=== PATIENT | male | born 1970 | race Caucasian/White ===

== ENCOUNTER 2016-08-09 14:54 | Inpatient (IN) | payer OTHER ==
[~2016-08-09] VITALS: Ht 180.3 cm; Wt 165.4 kg
[2016-08-09] MEDS ORDERED: CEFTAROLINE FOSAMIL 600 MG in D5W MINI-BAG PLUS 50 ML IV ONE (15:45)
[2016-08-09 16:12] LABS: BASO % 0.4 % (0.0-1.0); EOS # 0.1 K/mm3 (0.0-0.50); EOS % 1.6 % (0.0-3.0); LARGE UNSTAINED CELL # 0.1 K/mm3 (0.0-0.4); LARGE UNSTAINED CELL % 1.1 % (0.0-4.0); LYMPH # 1.4 K/mm3 (1.5-4.5); LYMPH % 15.2 % (24.0-44.0); MEAN CORPUSCULAR HEMOGLOBIN 29.1 pg (27.0-33.0); MEAN CORPUSCULAR HGB CONC 34.1 g/dl (32.0-36.5); MEAN CORPUSCULAR VOLUME 85.5 fl (80.0-96.0); MONO # 0.5 K/mm3 (0.0-0.8); MONO % 5.7 % (0.0-5.0); NEUTROPHILS # 6.4 K/mm3 (1.8-7.7); NEUTROPHILS % 76.1 % (36.0-66.0); PLATELET COUNT, AUTOMATED 234 k/mm3 (150-450); RED CELL DISTRIBUTION WIDTH 12.9 % (11.5-14.5); WHITE BLOOD COUNT 8.4 K/mm3 (4.0-10.0)
[2016-08-09 16:33] LABS: ANION GAP 5 MEQ/L (8-16); BLOOD UREA NITROGEN 16 MG/DL (7-18); CALCIUM LEVEL 8.9 MG/DL (8.5-10.1); CARBON DIOXIDE LEVEL 26 MEQ/L (21-32); CHLORIDE LEVEL 107 MEQ/L (98-107); GLOMERULAR FILTRATION RATE > 60.0 (>60); GLUCOSE, FASTING 109 MG/DL (70-105); POTASSIUM SERUM 3.6 MEQ/L (3.5-5.1); SODIUM LEVEL 138 MEQ/L (136-145)
[2016-08-09 20:00] VITALS: BP 136/77
[2016-08-09] MEDS ORDERED: ACETAMINOPHEN TAB 650MG DOSE (2X325MG) PO PRN (22:00)
--- NOTE | 2016-08-09 22:13 | PHACANCOPD ---
PHARMACY VANCOMYCIN DOSING Pt Demographics Demographics Patient Age:46 , Weight:165.400 , Gender: male Adjusted Body Weight Date: 08/09/16, Adjusted Body Weight: [111.2] Kg Events Past 24 Hours Events Past 24 Hours: NO: Dialysis, Diuretic Therapy, Change in CrCl, Fever, Elevation in WBC, Pending Diagnostics, Pending Procedures, Other Vancomycin Vancomycin Target Ranges: 15-20 mcg/ml Vancomycin Load Y/N: Yes Load Dose Date Time Vancomycin Load Dose: 2000MG Date: 08-09 Time: 2200 Vancomycin Dose Date: 08/09/16. Current Vancomycin Dose: [1000MG Q6H] Intermittent Dosing?: No Labs Labs Item Value Date Time White Blood Count 8.4 K/mm3 08/09/16 1558 Blood Urea Nitrogen 16 MG/DL 08/09/16 1558 Vital Signs Label Value Date Time Patient Temperature 99.1 degrees F 08/09/161999 Temperature Source Temporal 08/09/161999 Micro Microbiology 08/09/16 Blood Culture, Received Pending 08/09/16 Blood Culture, Received Pending Creatinine Clearance Date:08/09/16. Creatinine Clearance: [120]. Pending Labs Trough 07-05 @0700 Assessment and Plan Maintaining Current Dose?: Yes Reason for dose change: No Dose Change Pharmacist Note Pharmacist Note Date: 08/09/16. Pharmacist note:Dosed at 1000mg q6h with a trough ordered for 07- 05 @0700. Will continue to monitor and make adjustments as needed. RADHA AN PHARMACY Aug 09, 2016 22:13
--- NOTE | 2016-08-09 22:30 | HPE ---
DATE OF ADMISSION: 08/09/2016 PRIMARY CARE PROVIDER: None. CHIEF COMPLAINT: Neck pain. HISTORY OF PRESENT ILLNESS: He is a 46-year-old male with no significant past medical history who presented with 4 to 5 day history of neck pain. The pain started with mild swelling the first two days and then subsided. By the fourth day it returned again with a vengeance, much bigger and tender to palpation and slightly warm. The patient denies any trauma the neck. He also denies fever, chills, sick contacts, recent travel. REVIEW OF SYSTEMS: Ten point system assessed and negative except for what is noted in history of present illness. PAST MEDICAL HISTORY: Morbid obesity. SURGICAL HISTORY: He denies. FAMILY HISTORY: Grandparents have some kind of cancer, he does not recall. SOCIAL HISTORY: He has never smoked. He drinks alcohol on the weekend. Denies recreational drug use. Is . Has no children. ALLERGIES TO MEDICATIONS: None. LIST OF MEDICATIONS: None. PHYSICAL EXAMINATION: VITAL SIGNS: Blood pressure 136/77, pulse 83, respiratory rate 20, oxygen saturation 99% on room air, temperature 99.1 degrees Fahrenheit. GENERAL: He is alert, oriented to person, place, time and circumstances. No distress. Pleasant. He appears happy. HEENT: Pupils are equal, round and reactive to light. Extraocular muscles intact. Anicteric sclerae. Mucous membranes are moist. Trachea midline, so is nasal septum and uvula. NECK: Soft. There is palpable lump on the right side of the neck, lower aspect. There is also palpable adenopathy along the cervical chain. CARDIOVASCULAR SYSTEM: S1, S2 present. Rate is regular. No audible murmurs, rubs or gallops. RESPIRATORY SYSTEM: Lungs are clear to auscultation bilaterally. GASTROINTESTINAL: Abdomen is soft, nontender, nondistended. Bowel sounds are normal. No guarding. No rebound. RECTAL EXAMINATION: Deferred. GENITOURINARY EXAMINATION: Deferred. MUSCULOSKELETAL SYSTEM: No edema, cyanosis, or calf tenderness. SKIN: Warm and dry. Not cyanotic. No rash, petechiae or ecchymosis. NEUROLOGIC: Nonfocal findings. LABORATORY DATA: Hematology: White blood cell count of 8.4 thousand, hemoglobin 15, hematocrit 44, platelets 234. Chemistry: Sodium 138, potassium 3.6, chloride 107, bicarbonate 26, anion gap 5, BUN 16, creatinine 0.80, fasting glucose 109, lactic acid 1.0, calcium 8.9, C-reactive protein 5.48. Serology: Titers for Lyme disease pending. IMAGING STUDIES: Ultrasound of the neck revealed findings suggestive of an inflammatory process involving the neck and possibly the right parotid gland. CT scan followup recommended. CT scan of the neck showed inflammatory infectious changes along the posterior cervical neck with adenopathy involving the cervical chain, including , suspected necrotic lymph nodes. IMPRESSION: 1. Right sided neck mass, differential diagnosis includes an infectious process, inflammatory process or even malignancy, such as lymphoma. The patient is continued on vancomycin. Pain management and temperature control with Tylenol. ENT, Dr. Acharya, was consulted for possible biopsy of the mass and the lymph nodes. 2. Morbid obesity. The patient is advised to lose some weight. 3. Deep vein thrombosis (DVT) prophylaxis with subcutaneous Lovenox.
[2016-08-09] MEDS: VANCOMYCIN HCL 1,000 MG, VIAL MATE ADAPTER 1 EACH in D5W 250 ML IV SCH (22:58)
[2016-08-10] MEDS: VANCOMYCIN HCL 1,000 MG, VIAL MATE ADAPTER 1 EACH in D5W 250 ML IV SCH ×2 (02:25→08:19)
[2016-08-10 04:00] VITALS: BP 123/72
[2016-08-10 08:30] VITALS: BP 128/71
[2016-08-10 08:33] LABS: BASO % 0.4 % (0.0-1.0); EOS # 0.1 K/mm3 (0.0-0.50); EOS % 1.4 % (0.0-3.0); LARGE UNSTAINED CELL # 0.1 K/mm3 (0.0-0.4); LARGE UNSTAINED CELL % 1.5 % (0.0-4.0); LYMPH # 1.3 K/mm3 (1.5-4.5); LYMPH % 16.5 % (24.0-44.0); MEAN CORPUSCULAR HEMOGLOBIN 29.3 pg (27.0-33.0); MEAN CORPUSCULAR HGB CONC 33.4 g/dl (32.0-36.5); MEAN CORPUSCULAR VOLUME 87.6 fl (80.0-96.0); MONO # 0.5 K/mm3 (0.0-0.8); MONO % 6.5 % (0.0-5.0); NEUTROPHILS # 5.4 K/mm3 (1.8-7.7); NEUTROPHILS % 73.7 % (36.0-66.0); PLATELET COUNT, AUTOMATED 201 k/mm3 (150-450); WHITE BLOOD COUNT 7.3 K/mm3 (4.0-10.0)
[2016-08-10 08:44] LABS: ALBUMIN 3.4 GM/DL (3.2-5.2); ALBUMIN/GLOBULIN RATIO 1.06 (1.00-1.93); ALKALINE PHOSPHATASE 58 U/L (45-117); ALT/SGPT 29 U/L (12-78); ANION GAP 5 MEQ/L (8-16); AST/SGOT 17 U/L (15-37); BILIRUBIN,TOTAL 1.3 MG/DL (0.2-1.0); BLOOD UREA NITROGEN 13 MG/DL (7-18); CALCIUM LEVEL 8.6 MG/DL (8.5-10.1); CARBON DIOXIDE LEVEL 28 MEQ/L (21-32); CHLORIDE LEVEL 105 MEQ/L (98-107); CREATININE FOR GFR 0.78 MG/DL (0.70-1.30); GLOMERULAR FILTRATION RATE > 60.0 (>60); GLUCOSE, FASTING 107 MG/DL (70-105); MAGNESIUM LEVEL 2.4 MG/DL (1.8-2.4); POTASSIUM SERUM 4.3 MEQ/L (3.5-5.1); SODIUM LEVEL 138 MEQ/L (136-145); TOTAL PROTEIN 6.6 GM/DL (6.4-8.2)
[2016-08-10] MEDS: ENOXAPARIN 40 MG/0.4 ML SYRINGE (J1650) SC SCH (09:18)
[2016-08-10] MEDS: CEFTAROLINE FOSAMIL 600 MG in D5W MINI-BAG PLUS 50 ML IV SCH (13:54)
[2016-08-10 16:00] VITALS: BP 132/79
[2016-08-10 20:00] VITALS: BP 140/80
[2016-08-11 02:00] VITALS: BP 136/83
[2016-08-11] MEDS: CEFTAROLINE FOSAMIL 600 MG in D5W MINI-BAG PLUS 50 ML IV SCH ×2 (02:14→14:27)
[2016-08-11 07:31] LABS: BASO # 0.1 K/mm3 (0.0-0.2); BASO % 0.8 % (0.0-1.0); EOS # 0.1 K/mm3 (0.0-0.50); EOS % 1.7 % (0.0-3.0); LARGE UNSTAINED CELL # 0.2 K/mm3 (0.0-0.4); LARGE UNSTAINED CELL % 2.5 % (0.0-4.0); LYMPH # 1.7 K/mm3 (1.5-4.5); LYMPH % 21.3 % (24.0-44.0); MEAN CORPUSCULAR HEMOGLOBIN 29.8 pg (27.0-33.0); MEAN CORPUSCULAR HGB CONC 34.6 g/dl (32.0-36.5); MEAN CORPUSCULAR VOLUME 85.9 fl (80.0-96.0); MONO # 0.5 K/mm3 (0.0-0.8); MONO % 6.8 % (0.0-5.0); NEUTROPHILS # 5.2 K/mm3 (1.8-7.7); NEUTROPHILS % 66.9 % (36.0-66.0); PLATELET COUNT, AUTOMATED 221 k/mm3 (150-450); RED CELL DISTRIBUTION WIDTH 12.4 % (11.5-14.5); WHITE BLOOD COUNT 7.7 K/mm3 (4.0-10.0)
[2016-08-11 07:52] LABS: ALBUMIN 3.1 GM/DL (3.2-5.2); ALBUMIN/GLOBULIN RATIO 0.86 (1.00-1.93); ALKALINE PHOSPHATASE 55 U/L (45-117); ALT/SGPT 26 U/L (12-78); ANION GAP 5 MEQ/L (8-16); AST/SGOT 17 U/L (15-37); BILIRUBIN,TOTAL 0.9 MG/DL (0.2-1.0); BLOOD UREA NITROGEN 13 MG/DL (7-18); CALCIUM LEVEL 8.6 MG/DL (8.5-10.1); CARBON DIOXIDE LEVEL 28 MEQ/L (21-32); CHLORIDE LEVEL 106 MEQ/L (98-107); CREATININE FOR GFR 0.86 MG/DL (0.70-1.30); GLOMERULAR FILTRATION RATE > 60.0 (>60); GLUCOSE, FASTING 97 MG/DL (70-105); MAGNESIUM LEVEL 2.4 MG/DL (1.8-2.4); POTASSIUM SERUM 4.2 MEQ/L (3.5-5.1); SODIUM LEVEL 139 MEQ/L (136-145); TOTAL PROTEIN 6.7 GM/DL (6.4-8.2)
[2016-08-11 08:00] VITALS: BP 125/78
--- NOTE | 2016-08-11 08:29 | CR ---
DATE OF CONSULTATION: 08/10/2016 HISTORY OF PRESENT ILLNESS: Dae Adame is a 46-year-old man who states that about two weeks ago he had some swelling and pain to the right posterior neck. This seemed to resolve over a matter of a few days; however, over the last week, he has noted recurrent pain and swelling in this area, which has been increasing over the last week. The patient presented to the emergency room yesterday and was admitted with a diagnosis of cellulitis of the neck. The patient denies any fevers at home. He denies any problem swallowing. He has not had any chills or sweats. He denies any recent weight loss. He says that over the last 6 months he has been in his usual good state of health other than being very busy with work and tired from that. He is not having cough, hemoptysis, shortness of breath, chest pain. No abdominal pain, nausea or vomiting. He has never had any similar symptoms of the neck in the past. PAST MEDICAL HISTORY: Denies. PAST SURGICAL HISTORY: Denies. MEDICATIONS: He takes no regular home medications. ALLERGIES: No known drug allergies. SOCIAL HISTORY: The patient has never been a smoker. He says that he consumes alcohol on the weekends. FAMILY HISTORY: The patient is unaware of any significant medical problems in the family. REVIEW OF SYSTEMS: As above. PHYSICAL EXAMINATION: GENERAL: No acute distress. Voice is normal. Speech is 100% intelligible. HEAD: Normocephalic, atraumatic. FACE: No gross facial abnormalities or deformities. Cranial nerve VII is intact bilaterally. NECK: There is a large area of induration on the right posterior triangle. This is relatively firm to palpation and slightly tender. There is overlying cellulitis affecting the skin. Otherwise, the neck is obese. I do not palpate any other significant lymphadenopathy or masses. CT scan demonstrates clear frontal, sphenoid, maxillary and ethmoid sinuses. Mastoid air cells appear well aerated. No middle ear pathology. Parotid glands appear normal. There is fat stranding of the right posterior neck. There appears to be one small lymph node in the right posterior neck with necrotic center. There is no drainable fluid collection. ASSESSMENT AND PLAN: Mr. Adame is a 46-year-old man with cellulitis of the right posterior neck. The etiology of this is uncertain. I would treat with the antibiotics as you are doing. We will consider surgical intervention if there is no significant change after several days of antibiotics or the patient develops a krishna abscess.
[2016-08-11] MEDS: ENOXAPARIN 40 MG/0.4 ML SYRINGE (J1650) SC SCH (08:54)
--- NOTE | 2016-08-11 10:48 | IPN ---
DATE OF VISIT: 08/10/2016 SUBJECTIVE: Mr. Adame is a 46-year-old male who was seen and examined at the bedside. The patient denies overnight issues. The patient expressed that he still has some discomfort on the right side of his neck where the mass is located. However, the patient denies increase of pain. The patient expressed that he has been seen by Dr. Acharya this morning, who requested the patient be continued on antibiotic for another 24 hours. Also, Dr. Acharya has mentioned that the patient may require biopsy if the mass does not respond to the medical treatment for further investigation. OBJECTIVE: VITAL SIGNS: Temperature 98.8, pulse 72, respiratory rate 18, blood pressure 128/71, pulse oximetry 97% on room air. GENERAL APPEARANCE: The patient was sitting on the bed, in no acute distress. The patient was awake, alert, and oriented. HEENT: Normocephalic, atraumatic. Pupils are equal and reactive to light. Oral mucosa is moist. NECK: The patient has a mass on the right side of his neck, which is nontender to palpation. The mass in not fluctuating. The patient has possible lymphadenopathy at the base of the neck on the right side. HEART: Regular rate and rhythm. Normal S1, S2. LUNGS: Clear to auscultation bilaterally. Good air movement. No wheezing or rhonchi was noted. ABDOMEN: The patient is obese. Positive bowel sounds in all quadrants. No tenderness to palpation. NEUROLOGIC: Cranial nerves II-XII intact. No focal deficiencies. LABORATORY DATA: White blood cells 7.3, red blood cells 4.77, hemoglobin 14, hematocrit 41.8, MCV 87.6, MCH 29.3, MCHC 33.4, RDW 13, and platelet count 201, neutrophil percentage 73.7, lymphocyte percentage 16.5, monocyte percentage 6.5, eosinophil percentage 1.4, basophil percentage 0.4, leukocyte percentage 1.5. Sodium 138, potassium 4.3, chloride 105, carbon dioxide 28, anion gap 5, BUN 13, creatinine 0.78, glomerular filtration rate more than 60, fasting glucose 107, calcium 8.6, magnesium 2.4, total bilirubin 1.3, AST 17, ALT 29, alkaline phosphatase 58, C-reactive protein 4.94, total protein 6.6, albumin 3.4. ASSESSMENT AND PLAN: 1. Right side neck mass. The patient was on vancomycin. However, we have stopped this medication. We will start the patient on ceftaroline for the next [address] Acharya will evaluate the patient. The patient might require biopsy to rule out other possibilities, including lymphoma. At this time, the patient is stable and tolerating by mouth. 2. Deep venous thrombosis (DVT) prophylaxis. The patient is on Lovenox 40 mg daily subcutaneously. 3. Morbid obesity. BMI is 50.9. This is a chronic issue. My preceptor for this patient encounter was Lila Serrano MD. The preceptor was physically present in the building during the encounter and was fully available. As needed, all aspects of the patient interview, examination, medical decision making process, and medical care plan development were reviewed and approved by the preceptor. The preceptor is aware and concurs with the plan as stated in the body of this note and will attest to such by his/her cosignature. I, Lila Serrano, have both independently examined this patient as well as reviewed the documentation. I have discussed in detail with the resident the findings and plan of treatment as documented in the residents documentation. I will continue to follow the patient and offer further guidance to the patients care as necessary. MARIBEL
--- NOTE | 2016-08-11 14:24 | IPN ---
DATE: 08/11/2016 SUBJECTIVE: Mr. Adame is a 46-year-old man who was seen and examined at bedside. The patient denies chest pain, orthopnea or paroxysmal nocturnal dyspnea. The patient also denies nausea, vomiting, diarrhea, constipation. The patient also denies problems with chewing food or swallowing. The patient expressed that he believes his neck mass has decreased in size. He feels less discomfort. OBJECTIVE: VITAL SIGNS: Temperature 97.6, pulse 72, respiratory rate 18, blood pressure 125/78, pulse oximetry 95% on room air. Total intake from yesterday 1640. GENERAL APPEARANCE: The patient was lying in bed in no acute distress. The patient was awake, alert and oriented to time, place and person. HEENT: Normocephalic, atraumatic. Pupils are equal and reactive to light. Oral mucosa is moist. The patient has a mass on the right posterior triangle. It is firm to palpation and no tenderness. No lymphadenopathy was palpated. HEART: Regular rate and rhythm. Normal S1, S2. LUNGS: Clear breath sounds bilaterally. Good air movement. No wheezing, rhonchi. ABDOMEN: Obese. Soft, nontender to palpation. Positive bowel sounds in all quadrants. LABORATORY DATA: White blood cells 7.7, red blood cells 4.89, hemoglobin 14.5, hematocrit 42, MCV 85.9, MCH 29.8, MCHC 34.6, RDW 12.4, platelet count 221. Neutrophil percentage 66.9, lymphocyte percentage 21.3, monocyte percentage 6.8, eosinophil percentage 1.7, basophile percentage 0.8%, leukocyte percentage 2.5. Sodium 139, potassium 4.2, chloride 106, carbon dioxide 28, anion gap 5, BUN 13, creatinine 0.86, GFR more than 60, fasting glucose 97, calcium 8.6, magnesium 2.4, total bilirubin 0.9, AST 17, ALT 26, alkaline phosphatase 55. C-reactive protein is 3.7. Total protein 6.7, albumin 3.1. ASSESSMENT AND PLAN: 1. Mass on the right side of the neck. The patient has been seen by ENT, Dr. Acharya, who recommended the patient continue with current antibiotic (ceftaroline). According to the notes, biopsy may be required; however, according to the CT, there is only one lymph node that is 1.2 cm and it would be difficult to find phlegmon. At this point, we will continue the patient on the current antibiotic. We will reevaluate the patient tomorrow. Also, C-reactive protein has decreased today compared to yesterday. The patient does not have leukocytosis. The patient is afebrile. 2. Deep vein thrombosis (DVT) prophylaxis. The patient is on Lovenox. 3. Morbid obesity. BMI is 50.9. This is a chronic issue. My preceptor for this patient encounter was Dr. Serrano. The preceptor was physically present in the building during the encounter and was fully available. As needed, all aspects of the patient interview, examination, medical decision making process, and medical care plan development were reviewed and approved by the preceptor. The preceptor is aware and concurs with the plan as stated in the body of this note and will attest to such by his/her cosignature. I, Lila Serrano, have both independently examined this patient as well as reviewed the documentation. I have discussed in detail with the resident the findings and plan of treatment as documented in the residents documentation. I will continue to follow the patient and offer further guidance to the patients care as necessary. MARIBEL
[2016-08-11 16:00] VITALS: BP 127/82
[2016-08-12] VITALS: BP 129/64
[2016-08-12] MEDS: CEFTAROLINE FOSAMIL 600 MG in D5W MINI-BAG PLUS 50 ML IV SCH ×2 (02:53→14:06)
[2016-08-12 07:03] LABS: BASO % 0.5 % (0.0-1.0); EOS # 0.1 K/mm3 (0.0-0.50); EOS % 1.6 % (0.0-3.0); LARGE UNSTAINED CELL # 0.1 K/mm3 (0.0-0.4); LARGE UNSTAINED CELL % 1.6 % (0.0-4.0); LYMPH # 1.9 K/mm3 (1.5-4.5); LYMPH % 25.3 % (24.0-44.0); MEAN CORPUSCULAR HEMOGLOBIN 29.6 pg (27.0-33.0); MEAN CORPUSCULAR HGB CONC 35.1 g/dl (32.0-36.5); MEAN CORPUSCULAR VOLUME 84.5 fl (80.0-96.0); MONO # 0.5 K/mm3 (0.0-0.8); MONO % 6.7 % (0.0-5.0); NEUTROPHILS # 4.4 K/mm3 (1.8-7.7); NEUTROPHILS % 64.3 % (36.0-66.0); PLATELET COUNT, AUTOMATED 217 k/mm3 (150-450); RED CELL DISTRIBUTION WIDTH 12.5 % (11.5-14.5); WHITE BLOOD COUNT 6.9 K/mm3 (4.0-10.0)
[2016-08-12 07:21] LABS: ALBUMIN 3.3 GM/DL (3.2-5.2); ALBUMIN/GLOBULIN RATIO 0.75 (1.00-1.93); ALKALINE PHOSPHATASE 60 U/L (45-117); ALT/SGPT 31 U/L (12-78); ANION GAP 6 MEQ/L (8-16); AST/SGOT 17 U/L (15-37); BILIRUBIN,TOTAL 0.7 MG/DL (0.2-1.0); BLOOD UREA NITROGEN 13 MG/DL (7-18); CALCIUM LEVEL 9.1 MG/DL (8.5-10.1); CARBON DIOXIDE LEVEL 27 MEQ/L (21-32); CHLORIDE LEVEL 107 MEQ/L (98-107); CREATININE FOR GFR 0.83 MG/DL (0.70-1.30); GLOMERULAR FILTRATION RATE > 60.0 (>60); GLUCOSE, FASTING 95 MG/DL (70-105); MAGNESIUM LEVEL 2.3 MG/DL (1.8-2.4); SODIUM LEVEL 140 MEQ/L (136-145); TOTAL PROTEIN 7.7 GM/DL (6.4-8.2)
[2016-08-12 08:00] VITALS: BP 130/74
[2016-08-12] MEDS: ENOXAPARIN 40 MG/0.4 ML SYRINGE (J1650) SC SCH (09:00)
[2016-08-12 16:00] VITALS: BP 146/75
--- NOTE | 2016-08-12 16:29 | IPN ---
DATE: 08/12/2016 SUBJECTIVE: Mr. Jones is a 46-year-old man who was seen and examined at the bedside. The patient denied chest pain, orthopnea or paroxysmal nocturnal dyspnea (PND). The patient also denies nausea, vomiting, diarrhea, constipation. The patient denies overnight issues. The patient expressed that he feels that his neck mass has decreased and is less painful and he has less discomfort. OBJECTIVE: Vital Signs: Temperature 97.6, pulse 63, respiratory rate 18, blood pressure 130/74, pulse oximetry 100% on room air. General Appearance: The patient was lying in bed in no acute distress. The patient was awake, alert and oriented to time, place and person. HEENT: Normocephalic, atraumatic. Pupils are equal and reactive to light. Oral mucosa is moist. The patient has a mass on the right posterior triangle. It is firm to palpate and nontender to palpation. No erythema was noted around the area and no lymphadenopathy was palpated. Heart: Regular rate and rhythm. Normal S1, S2. Lungs: Clear breath sounds bilaterally. Good air movement. Abdomen: Morbid obesity. Positive bowel sounds in all quadrants. Soft, nontender to palpation. LABORATORY DATA: White blood cells 6.9, red blood cells 5.04, hemoglobin 14.9, hematocrit 42.5, MCV 84.5, MCH 29.6, MCHC 35.1, RDW 12.5, platelet count 217, neutrophil percentage 64.3, lymphocyte percentage 25.3, monocyte percentage 6.7, eosinophil percentage 1.6, basophil percentage 0.5, leukocyte percentage 1.6. Sodium 140, potassium 4, chloride 107, carbon dioxide 27, anion gap 6, BUN 13, creatinine 0.83, glomerular filtration rate more than 60, fasting glucose 95, calcium 9.1. Magnesium 2.3, total bilirubin 0.7, AST 17, ALT 31, alkaline phosphatase 60 and C-reactive protein 3.51, total protein 7.7, albumin 3.3. Blood culture: No growth after 48 hours. ASSESSMENT AND PLAN: 1. Mass on the right side of his neck. The patient has full range of motion of his neck. Mass is smaller today. At this time, we will continue the patient on antibiotic (ceftaroline) and I will speak with Ears, Nose and Throat (ENT) for further recommendations. The patient has no leukocytosis and blood cultures were negative. The patient had one episode of increased temperature to 99.6 last night; however, the patient's temperature is stable. We will continue to monitor the patient for any abnormal symptoms. 2. Deep vein thrombosis (DVT) prophylaxis. The patient is on Lovenox. 3. Morbid obesity. The patient has a body mass index (BMI) of 50.9. This is a chronic issue. My preceptor for this patient encounter was Dr. Serrano. The preceptor was physically present in the building during the encounter and was fully available. As needed, all aspects of the patient interview, examination, medical decision making process, and medical care plan development were reviewed and approved by the preceptor. The preceptor is aware and concurs with the plan as stated in the body of this note and will attest to such by his/her cosignature. I, Lila Serrano, have both independently examined this patient as well as reviewed the documentation. I have discussed in detail with the resident the findings and plan of treatment as documented in the residents documentation. I will continue to follow the patient and offer further guidance to the patients care as necessary. MARIBEL
[2016-08-12] MEDS: SLF 3 ML SYR IV PRN (16:30)
[2016-08-12 20:00] VITALS: BP 138/69
[2016-08-12] MEDS: SLF 3 ML SYR IV SCH (22:00)
[2016-08-13] VITALS: BP 126/68
[2016-08-13 00:15] LABS: Lyme Disease IgG/IgM Antibodie <0.91 ISR (0.00-0.90); Lyme Disease IgM Ab Quantitati <0.80 index (0.00-0.79)
[2016-08-13] MEDS: CEFTAROLINE FOSAMIL 600 MG in D5W MINI-BAG PLUS 50 ML IV SCH (02:49)
[2016-08-13] MEDS: SLF 3 ML SYR IV PRN (02:50)
[2016-08-13] MEDS: SLF 3 ML SYR IV SCH (06:30)
[2016-08-13 07:34] LABS: BASO % 0.8 % (0.0-1.0); EOS # 0.1 K/mm3 (0.0-0.50); EOS % 1.9 % (0.0-3.0); LARGE UNSTAINED CELL # 0.2 K/mm3 (0.0-0.4); LARGE UNSTAINED CELL % 2.6 % (0.0-4.0); LYMPH # 1.5 K/mm3 (1.5-4.5); LYMPH % 24.5 % (24.0-44.0); MEAN CORPUSCULAR HGB CONC 35.2 g/dl (32.0-36.5); MEAN CORPUSCULAR VOLUME 85.3 fl (80.0-96.0); MONO # 0.4 K/mm3 (0.0-0.8); MONO % 6.5 % (0.0-5.0); NEUTROPHILS # 3.8 K/mm3 (1.8-7.7); NEUTROPHILS % 63.6 % (36.0-66.0); PLATELET COUNT, AUTOMATED 234 k/mm3 (150-450); RED CELL DISTRIBUTION WIDTH 12.5 % (11.5-14.5); WHITE BLOOD COUNT 5.9 K/mm3 (4.0-10.0)
[2016-08-13] MEDS ORDERED: CEFD1CAP8 PO (07:45)
[2016-08-13] MEDS ORDERED: DOXY-278 PO (07:46)
[2016-08-13 08:17] LABS: ALBUMIN 3.2 GM/DL (3.2-5.2); ALBUMIN/GLOBULIN RATIO 0.84 (1.00-1.93); ALKALINE PHOSPHATASE 58 U/L (45-117); ALT/SGPT 38 U/L (12-78); ANION GAP 7 MEQ/L (8-16); AST/SGOT 27 U/L (15-37); BILIRUBIN,TOTAL 0.7 MG/DL (0.2-1.0); BLOOD UREA NITROGEN 13 MG/DL (7-18); CALCIUM LEVEL 8.9 MG/DL (8.5-10.1); CARBON DIOXIDE LEVEL 25 MEQ/L (21-32); CHLORIDE LEVEL 107 MEQ/L (98-107); CREATININE FOR GFR 0.81 MG/DL (0.70-1.30); GLOMERULAR FILTRATION RATE > 60.0 (>60); GLUCOSE, FASTING 93 MG/DL (70-105); MAGNESIUM LEVEL 2.2 MG/DL (1.8-2.4); POTASSIUM SERUM 4.1 MEQ/L (3.5-5.1); SODIUM LEVEL 139 MEQ/L (136-145)
[2016-08-13 09:00] VITALS: BP 132/75
[2016-08-13] MEDS: ENOXAPARIN 40 MG/0.4 ML SYRINGE (J1650) SC SCH (09:23)
--- NOTE | 2016-08-15 14:51 | DSES ---
DATE OF ADMISSION: 08/09/2016 DATE OF DISCHARGE: 08/13/2016 PRIMARY CARE PHYSICIAN: Patient does not have a primary care physician at this time. LEVI MAKER: Dr. Marian Acharya, ears, nose, and throat (ENT), Dr. Ben Campos, ENT. DISCHARGE HOME MEDICATION: - cefdinir 300 mg by mouth twice a day for 6 days - doxycycline 100 mg by mouth twice a day for 6 days PRIMARY DIAGNOSIS: Right-sided neck mass. SECONDARY DIAGNOSES: Morbid obesity. HOSPITAL COURSE: Mr. Adame is a 46-year-old male with a past medical history of morbid obesity, presented to the emergency room (ER) due to experiencing neck pain as well as right neck mass. Due to the differential diagnosis including infection process, patient was started on vancomycin and ENT, Dr. Acharya, was consulted. Thyroid ultrasound indicated an inflammatory process involving the neck and possibly the right parotid gland. Also, a neck CT with contrast was performed which indicated inflammatory/infection changes along the right posterior neck and the adenopathy involving the cervical chain involving focal 12 mm suspected necrotic lymph node. Dr. Acharya recommended that patient continue with antibiotic and surgical consideration would be taken if there are no significant changes after several days of antibiotic. Antibiotic was changed from vancomycin to Teflaro for broader coverage. Dr. Campos also visited the patient who agreed with the choice of antibiotic and, based on his recommendation, we continued monitoring the patient for another 24 hours to followup regarding the response to the antibiotic and the measurements of the mass. On the day of discharge, patient's neck mass has decreased in size, and the patient was asymptomatic. However, patient continued to have about 5 cm diameter of the mass , which was firm without fluctuance. After speaking with ENT, patient was discharged home with by mouth antibiotic and was requested to followup with the primary care physician also with the ENT. Also, we have assigned a primary care provider (PCP) for patient to followup within 5 days. DISCHARGE PLACEMENT: Home. FOLLOWUP: Please followup with ENT and primary care within 5 days. ACTIVITY: Activity as tolerated by patient. My preceptor for this patient encounter was Dr. Lila Serrano. The preceptor was physically present in the building during the encounter and was fully available. As needed, all aspects of the patient interview, examination, medical decision making process, and medical care plan development were reviewed and approved by the preceptor. The preceptor is aware and concurs with the plan as stated in the body of this note and will attest to such by his/her cosignature. edited: 08/20/2016 0749 tkf I, Lila Serrano, have both independently examined this patient as well as reviewed the documentation. I have discussed in detail with the resident the findings and plan of treatment as documented in the residents documentation. I will continue to follow the patient and offer further guidance to the patients care as necessary during this hospital stay. MARIBEL
== END 2016-08-13 10:00 | disposition home or self-care (01) | DRG 383 ==
LOC: M ED 14:54 → M ED INP 18:21 → M PED 20:00
PROVIDERS: ADMIT Hospitalist; ATTEND Internal Medicine
DX: L03.221 Cellulitis of neck (principal); Z68.43 Body mass index [BMI] 50.0-59.9, adult; E66.01 Morbid (severe) obesity due to excess calories; R22.1 Localized swelling, mass and lump, neck

== ENCOUNTER → 2016-08-09 | Outpatient (CLI) | payer OTHER ==
[~2016-08-09] MED LIST: CEFD1CAP8 PO; DOXY-278 PO; ISOVUE-370 76% 100ML VIAL (Q9967) As Ordered ONE
--- NOTE | 2016-08-09 12:46 | REP ---
Clinical: Right neck swelling. Technique: Real time miranda scale ultrasound examination using curved array and linear high frequency transducers. Findings: Ultrasound examination suggests mild right-sided adenopathy with surrounding inflammatory changes to the subcutaneous tissues. Lymph nodes at the site of maximal swelling measure 11 x 9 x 11 mm along with bilateral cervical chain lymph nodes measuring 17 x 7 x 13 mm on the right and 21 x 8 x 12 mm on the left. The right parotid gland is asymmetrically enlarged compared to the left with suggestions for surrounding inflammatory stranding. Impression: Findings suggest an inflammatory process involving the neck and possibly the right parotid gland. Follow-up is recommended and if symptoms persist, contrast enhanced CT of the neck may be warranted. Signed by Edgardo Smith MD 08/09/2016 12:37 P
--- NOTE | 2016-08-09 14:42 | REP ---
Clinical: Neck swelling. Technique: Axial contrast enhanced images from the the mid skull through the thoracic inlet with coronal and sagittal re-formations using 100 ml Isovue 370 intravenous contrast material. Findings: Inflammatory changes along the right posterior neck with adenopathy along the right posterior cervical chain including rim enhancing 12 mm lymph node with central low density changes (images 43 - 48) suggesting necrotic lymph node and less likely mass. The remainder of the examination including oropharynx, parapharyngeal and retropharyngeal soft tissues, airway, bilateral vasculature, parotid, submandibular and submental glands appear normal. Visualized sinuses are well aerated and clear. Osseous structures are intact. Impression: Inflammatory/infectious changes along the right posterior neck with adenopathy involving the cervical chain including focal 12 mm suspected necrotic lymph node. Signed by Edgardo Smith MD 08/09/2016 02:33 P
== END ==
LOC: M RAD 11:49
PROVIDERS: ATTEND Physician Assistant
DX: R22.1 Localized swelling, mass and lump, neck (principal)

== ENCOUNTER → 2016-08-09 | Outpatient (CLI) | payer BC, OTHER ==
[~2016-08-09] MED LIST changes: -ISOVUE-370 76% 100ML VIAL (Q9967) As Ordered ONE
[2016-08-09 19:26] LABS: BASO % 0.4 % (0.0-1.0); EOS # 0.1 K/mm3 (0.0-0.50); EOS % 1.1 % (0.0-3.0); LARGE UNSTAINED CELL # 0.1 K/mm3 (0.0-0.4); LARGE UNSTAINED CELL % 1.4 % (0.0-4.0); LYMPH # 1.6 K/mm3 (1.5-4.5); LYMPH % 18.6 % (24.0-44.0); MEAN CORPUSCULAR HEMOGLOBIN 29.5 pg (27.0-33.0); MEAN CORPUSCULAR HGB CONC 33.7 g/dl (32.0-36.5); MEAN CORPUSCULAR VOLUME 87.7 fl (80.0-96.0); MONO # 0.5 K/mm3 (0.0-0.8); MONO % 6.4 % (0.0-5.0); NEUTROPHILS # 5.7 K/mm3 (1.8-7.7); PLATELET COUNT, AUTOMATED 220 k/mm3 (150-450); RED CELL DISTRIBUTION WIDTH 12.8 % (11.5-14.5); WHITE BLOOD COUNT 7.9 K/mm3 (4.0-10.0)
[2016-08-09 21:31] LABS: ALBUMIN 3.8 GM/DL (3.2-5.2); ALBUMIN/GLOBULIN RATIO 1.19 (1.00-1.93); ALKALINE PHOSPHATASE 62 U/L (45-117); ALT/SGPT 29 U/L (12-78); ANION GAP 6 MEQ/L (8-16); AST/SGOT 20 U/L (15-37); BILIRUBIN,TOTAL 1.4 MG/DL (0.2-1.0); BLOOD UREA NITROGEN 15 MG/DL (7-18); CALCIUM LEVEL 8.9 MG/DL (8.5-10.1); CARBON DIOXIDE LEVEL 28 MEQ/L (21-32); CHLORIDE LEVEL 107 MEQ/L (98-107); CREATININE FOR GFR 0.79 MG/DL (0.70-1.30); GLOMERULAR FILTRATION RATE > 60.0 (>60); GLUCOSE, FASTING 83 MG/DL (70-105); POTASSIUM SERUM 4.3 MEQ/L (3.5-5.1); SODIUM LEVEL 141 MEQ/L (136-145)
== END ==
LOC: M WUC 10:52
PROVIDERS: ATTEND Physician Assistant
DX: R22.1 Localized swelling, mass and lump, neck (principal)

== ENCOUNTER → 2020-04-08 | Outpatient (CLI) | payer OTHER ==
[~2020-04-08] MED LIST changes: -DOXY-278 PO; +DOXY-350 PO
== END ==
LOC: M LABSMTC 13:33
PROVIDERS: ATTEND Family Medicine
DX: Z20.822 Contact with and (suspected) exposure to COVID-19 (principal)
CPT/HCPCS: C9803; U0003

== ENCOUNTER → 2020-07-11 | Outpatient (REF) ==
[2020-07-11 20:01] LABS: INFLUENZA A AMPLIFICATION NEGATIVE (NEGATIVE); INFLUENZA B AMPLIFICATION NEGATIVE (NEGATIVE)
== END ==
LOC: M LAB 08:32